=== PATIENT | female | born 1940 | race Hispanic/Latino ===

== ENCOUNTER → 2019-09-11 | Day surgery (SDC) | payer OTHER ==
[~2019-09-11] MED LIST: ATORVASTATIN CA20 MG PO; BUPIVACAINE HCL 0.5% INJ 30 ML VIAL INJ ONE; CEFAZOLIN SOD 1 GM/NS 50ML 100 ML IV ONE; FENTANYL CITRATE/PF 100MCG/2 ML INJ ONE; HUMALOG100 UNIT/1 SQ; HUMULIN-R100 UNITS/ SQ; LIDOCAINE HCL 2% LOCAL INJ 5 ML SDV VIAL INJ ONE; METFORMIN HCL500 MG PO; MYRBETRIQ25 MG PO; ONDANSETRON HCL INJ 2MG/ML 2ML 2 MG/ML VIAL ONE; PROPOFOL IV EMULSION 10 MG/ML 20 ML VIAL ONE; SERTRALINE HCL50 MG PO; SEVOFLURANE INHAL SOLN 250 ML PEN BTL ONE; VESICARE5 MG PO
--- OUTSIDE RECORDS SUMMARY | 2019-09-11 07:10 | XMS REPORT ---
[facility] Address Unknown Phone Unavailable Care Team Providers Care Protective Signal Operations Supervisor Name Role Phone Unavailable Unavailable Payers Payer Name Policy Type Policy Number Effective Date Expiration Date Problems This patient has no known problems. Allergies, Adverse Reactions, Alerts Allergy Name Allergy Type Status Severity Reaction(s) Onset Date Inactive Date Treating Clinician Comments No Known Allergies DA Active U 2019-01-22 00:00:00 No Known Allergies DA Active U 2018-10-28 00:00:00 No Known Allergies DA Active U 2018-05-02 00:00:00 No Known Allergies DA Active U 2018-03-06 00:00:00 No Known Allergies DA Active U 2016-06-24 00:00:00 tramadol DA Active U 2014-10-10 00:00:00 Medications This patient has no known medications. Encounters Start Date/Time End Date/Time Encounter Type Admission Type Attending Clinicians Care Facility Care Department Encounter ID 2019-06-24 00:00:00 2019-06-24 00:00:00 Outpatient [facility] [id number] 2019-05-13 07:30:59 2019-05-13 07:30:59 Outpatient [facility] [id number] 2019-05-13 00:00:00 2019-05-13 00:00:00 Outpatient [facility] [id number] 2019-05-07 07:35:18 2019-05-07 07:35:18 Outpatient [facility] [id number] 2019-04-30 07:19:50 2019-04-30 07:19:50 Outpatient [facility] [id number] 2019-04-30 00:00:00 2019-04-30 00:00:00 Outpatient [facility] [id number] 2019-03-27 08:55:00 2019-03-27 08:55:00 Outpatient [facility] [id number] 2019-03-27 08:01:46 2019-03-27 08:01:46 Outpatient [facility] [id number] 2019-03-11 09:19:01 2019-03-11 09:19:01 Outpatient [facility] [id number] 2019-03-11 08:50:44 2019-03-11 08:50:44 Outpatient [facility] [id number] 2019-03-11 00:00:00 2019-03-11 00:00:00 Outpatient [facility] [id number] 00:00:00 2019 00:00:00 Outpatient [facility] [id number] 2019-01-28 10:33:08 2019-01-28 10:33:08 Outpatient [facility] [id number] 2019-01-28 07:24:30 2019-01-28 07:24:30 Outpatient [facility] [id number] 2019-01-28 00:00:00 2019-01-28 00:00:00 Outpatient [facility] [id number] 2019-01-23 08:17:35 2019-01-23 08:17:35 Outpatient [facility] [id number] 2019-01-15 07:10:16 2019-01-15 07:10:16 Outpatient [facility] [id number] 2019-01-15 00:00:00 2019-01-15 00:00:00 Outpatient [facility] [id number] 2019-01-08 08:42:45 2019-01-08 08:42:45 Outpatient [facility] [id number] 2018-12-18 08:10:35 2018-12-18 08:10:35 Outpatient [facility] [id number] 2018-11-27 09:39:28 2018-11-27 09:39:28 Outpatient [facility] [id number] 2018-11-21 00:00:00 2018-11-21 00:00:00 Outpatient [facility] [id number] 2018-11-13 08:37:12 2018-11-13 08:37:12 Outpatient [facility] [id number] 2018-11-13 08:06:37 2018-11-13 08:06:37 Outpatient [facility] [id number] 2018-11-13 00:00:00 2018-11-13 00:00:00 Outpatient [facility] [id number] 2018-11-08 00:00:00 2018-11-08 00:00:00 Outpatient [facility] [id number] 2018-11-06 00:00:00 2018-11-06 00:00:00 Outpatient [facility] [id number] 2018-10-16 00:00:00 2018-10-16 00:00:00 Outpatient [facility] [id number] 2018-10-12 00:00:00 2018-10-12 00:00:00 Outpatient [facility] [id number] 2018-10-08 08:45:44 2018-10-08 08:45:44 Outpatient [facility] [id number] 2018-10-08 07:36:07 2018-10-08 07:36:07 Outpatient [facility] [id number] 2018-10-08 00:00:00 2018-10-08 00:00:00 Outpatient [facility] [id number] 2018-10-08 00:00:00 2018-10-08 00:00:00 Outpatient [facility] [id number] 2018-10-01 09:19:57 2018-10-01 09:19:57 Outpatient [facility] [id number] 2018-09-18 08:49:19 2018-09-18 08:49:19 Outpatient [facility] [id number] 2018-08-13 00:00:00 2018-08-13 00:00:00 Outpatient [facility] [id number] 2018-07-26 00:00:00 2018-07-26 00:00:00 Outpatient [facility] [id number] 2018-06-22 07:33:35 2018-06-22 07:33:35 Outpatient [facility] [id number] 2018-06-18 08:21:56 2018-06-18 08:21:56 Outpatient [facility] [id number] 2018-06-13 00:00:00 2018-06-13 00:00:00 Outpatient [facility] [id number] 2018-05-31 08:51:34 2018-05-31 08:51:34 Outpatient [facility] [id number] 2018-05-16 00:00:00 2018-05-16 00:00:00 Outpatient [facility] [id number] 2018-05-14 00:00:00 2018-05-14 00:00:00 Outpatient [facility] [id number] 2018-05-07 08:48:49 2018-05-07 08:48:49 Outpatient [facility] [id number] 2018-05-07 00:00:00 2018-05-07 00:00:00 Outpatient [facility] [id number] 2018-05-03 00:00:00 2018-05-03 00:00:00 Outpatient [facility] [id number] 2018-04-30 07:03:26 2018-04-30 07:03:26 Outpatient [facility] [id number] 2018-04-24 00:00:00 2018-04-24 00:00:00 Outpatient [facility] [id number] 2018-04-17 00:00:00 2018-04-17 00:00:00 Outpatient [facility] [id number] 2018-04-09 08:26:45 2018-04-09 08:26:45 Outpatient [facility] [id number] 2018-03-15 07:12:43 2018-03-15 07:12:43 Outpatient [facility] [id number] 2018-03-12 09:05:45 2018-03-12 09:05:45 Outpatient [facility] [id number] 2018-02-28 07:57:10 2018-02-28 07:57:10 Outpatient [facility] [id number] 2018-02-24 00:00:00 2018-02-24 00:00:00 Outpatient [facility] [id number] 2018-02-23 04:08:08 2018-02-23 04:08:[address] [facility] [id number] 2018-02-23 01:08:13 2018-02-23 01:08:13 Outpatient [facility] [id number] 2018-02-23 00:00:00 2018-02-23 00:00:00 Outpatient [facility] [id number] 2018-02-23 00:00:00 2018-02-23 00:00:00 Outpatient [facility] [id number] 2018-02-21 21:53:04 2018-02-21 21:53:[address] [facility] [id number] 2018-02-14 08:14:21 2018-02-14 08:14:21 Outpatient [facility] [id number] 2018-02-07 07:06:48 2018-02-07 07:06:48 Outpatient [facility] [id number] 2018-01-27 00:00:00 2018-01-27 00:00:00 Outpatient [facility] [id number] 2018-01-23 00:00:00 2018-01-23 00:00:00 Outpatient [facility] [id number] 2018-01-18 00:00:00 2018-01-18 00:00:00 Outpatient [facility] [id number] 2018-01-17 06:57:52 2018-01-17 06:57:52 Outpatient [facility] [id number] 2017-12-27 08:16:02 2017-12-27 08:16:02 Outpatient [facility] [id number] 2017-12-12 05:53:40 2017-12-12 05:53:40 Emergency [facility] [id number] 2017-12-12 05:31:05 2017-12-12 05:31:05 Emergency [facility] [id number] 2017-12-12 00:00:00 2017-12-12 00:00:00 Outpatient [facility] [id number] 2017-11-30 08:28:25 2017-11-30 08:28:25 Outpatient [facility] [id number] 2017-11-28 00:00:00 2017-11-28 00:00:00 Outpatient [facility] [id number] 2017-11-20 05:48:27 2017-11-20 05:48:27 Emergency [facility] [id number] 2017-11-17 06:57:46 2017-11-17 06:57:46 Outpatient [facility] [id number] 2017-11-02 08:34:39 2017-11-02 08:34:39 Outpatient [facility] [id number] 2017-10-16 00:00:00 2017-10-16 00:00:00 Outpatient [facility] [id number] 2017-10-10 09:32:57 2017-10-10 09:32:57 Outpatient [facility] [id number] 2017-09-22 07:48:30 2017-09-22 07:48:30 Outpatient [facility] [id number] 2017-09-17 01:00:30 2017-09-17 01:00:30 Outpatient [facility] [id number] 2017-09-16 22:45:40 2017-09-16 22:45:40 Emergency [facility] [id number] 2017-09-16 19:21:44 2017-09-16 19:21:44 Emergency [facility] [id number] 2017-09-16 18:38:16 2017-09-16 18:38:16 Outpatient [facility] [id number] 2017-07-25 09:23:55 2017-07-25 09:23:55 Outpatient [facility] [id number] 2017-07-25 08:40:18 2017-07-25 08:40:18 Outpatient [facility] [id number] 2017-07-25 08:24:31 2017-07-25 08:24:31 Outpatient [facility] [id number] 2017-07-17 07:38:39 2017-07-17 07:38:39 Outpatient [facility] [id number] 2017-07-16 14:39:17 2017-07-16 14:39:17 Emergency [facility] [id number] 2017-07-16 10:32:34 2017-07-16 10:32:34 Emergency [facility] [id number] 2017-07-16 10:15:20 2017-07-16 10:15:20 Emergency [facility] [id number] 2017-07-16 10:14:58 2017-07-16 10:14:58 Emergency [facility] [id number] 2017-07-16 09:48:51 2017-07-16 09:48:51 Emergency [facility] [id number] 2017-07-14 09:28:01 2017-07-14 09:28:01 Outpatient [facility] [id number] 2017-07-14 06:44:31 2017-07-14 06:44:31 Emergency [facility] [id number] 2017-07-14 00:15:16 2017-07-14 00:15:[address] [facility] [id number] 2016-12-28 00:00:00 2016-12-28 00:00:00 Outpatient [facility] [id number] 2016-12-12 00:00:00 2016-12-12 00:00:00 Outpatient [facility] [id number] 2016-11-11 00:00:00 2016-11-11 00:00:00 Outpatient [facility] [id number] 2016-11-03 10:50:09 2016-11-03 10:50:09 Outpatient [facility] [id number] 2016-11-03 00:00:00 2016-11-03 00:00:00 Outpatient [facility] [id number] 2016-11-03 00:00:00 2016-11-03 00:00:00 Outpatient [facility] [id number] Results Test Description Test Time Test Comments Text Results Atomic Results Result Comments - XR WRIST 3 + V LT 2019-08-23 15:35:00 FAX: Luis Manuel Macias MD [phone] [place]: [place] St: REG Name: EMERSONJASSI PEREZ [facility] : 1940 Age/S: 79/F [address] [facility] [address] Unit #: [id number] Loc: [facility] [address] Phys: Luis Manuel Macias MD [place], [place] [address] Acct: [id number] Dis Date: Status: REG ER PHONE #: Exam Date: 08/23/2019 1430 FAX #: Reason: injury r/o fx EXAMS: CPT CODE: [id number] XR WRIST 3 + V LT 10897 EXAM: Left wrist, 3 views; INFORMATION: Trauma, leg: Fracture impression FINDINGS: There is a slightly impacted fracture involving the metaphysis of the left radius. The lateral view shows mild dorsal displacement of small cortical fragments. The distal ulna as well as carpal and metacarpal bones are intact. There is periarticular soft tissue swelling; No radiopaque foreign bodies. IMPRESSION: Impacted fracture of the distal left radius. Location code: [facility] at 1538 Reported and signed by: Paul Rizvi M.D. CC: Luis Manuel Macias MD Technologist: José Manuel Sunshine Trnscrd Date/Time/By: 08/23/2019 (4889) : By: Gracia Orig Print D/T: S: 08/23/2019 (6395) PAGE 1 Signed Report - CT CHEST W/O CONTRAST 2019-04-10 14:27:00 Name: JASSI EMERSON [facility] : 1940 Age/S: 79 / F [address] Unit #: [id number] Loc: [place] [address] Phys: Amber Kay MD Acct: [id number] Dis Date: Status: DEP CLI PHONE #: [phone] Exam Date: 04/10/2019 1415 FAX #: [phone] Reason: DYSPNEA EXAMS: CPT CODE: [id number] CT CHEST W/O CONTRAST 13372 HISTORY: Dyspnea. COMPARISON: CT chest from July 05, 2016 CT chest without contrast: Automated exposure control. The lungs are clear of infiltrates, effusion or congestion. Scarring and dependent changes bilaterally. No parenchymal mass or nodules are noted. No bronchiectasis, honeycombing or fibrosis or endobronchial lesions. Normal caliber atherosclerotic unopacified aorta. Unremarkable unopacified pulmonary arteries. The thyroi d glands are unremarkable. Esophagus is mildly dilated. The wall is not thickened. No pathologic adenopathy. Cardiac silhouette is mildly enlarged without pericardial effusion. Visualized upper abdomen is limited by motion but unremarkable. The subcutaneous tissues and the musculature are normal in appearance. No lytic or blastic lesions are noted within the bony skeleton. IMPRESSION: The lungs are clear with scarring and dependent changes. No parenchymal mass or nodules. No bronchiectasis, honeycombing or fibrosis. No pathologic adenopathy. at 1427 Reported and signed by: Gregory Valdes M.D. CC: Amber Kay MD Technologist:Katie DavenportRT(R),CT CTDI: DLP: Trnscb Date/Time: 04/10/2019 (1426) [email or web address] Orig Print D/T: S: 04/10/2019 (4831) PAGE 1 Signed Report - CT CHEST W/O CONTRAST 2019-04-10 14:27:00 Name: JASSI EMERSON [facility] : 1940 Age/S: 79 / F [address] Unit #: [id number] Loc: [place] [address] Phys: Amber Kay MD Acct: [id number] Dis Date: Status: REG CLI PHONE #: [phone] Exam Date: 04/10/2019 1415 FAX #: [phone] Reason: DYSPNEA EXAMS: CPT CODE: [id number] CT CHEST W/O CONTRAST 48275 HISTORY: Dyspnea. COMPARISON: CT chest from July 05, 2016 CT chest without contrast: Automated exposure control. The lungs are clear of infiltrates, effusion or congestion. Scarring and dependent changes bilaterally. No parenchymal mass or nodules are noted. No bronchiectasis, honeycombing or fibrosis or endobronchial lesions. Normal caliber atherosclerotic unopacified aorta. Unremarkable unopacified pulmonary arteries. The thyroi d glands are unremarkable. Esophagus is mildly dilated. The wall is not thickened. No pathologic adenopathy. Cardiac silhouette is mildly enlarged without pericardial effusion. Visualized upper abdomen is limited by motion but unremarkable. The subcutaneous tissues and the musculature are normal in appearance. No lytic or blastic lesions are noted within the bony skeleton. IMPRESSION: The lungs are clear with scarring and dependent changes. No parenchymal mass or nodules. No bronchiectasis, honeycombing or fibrosis. No pathologic adenopathy. at 1427 Reported and signed by: Gregory Valdes M.D. CC: Amber Kay MD Technologist:Katie DavenportRT(R),CT CTDI: DLP: Trnscb Date/Time: 04/10/2019 (1427) [email or web address] Orig Print D/T: S: 04/10/2019 (0330) PAGE 1 Signed Report - CT ABD PELVIS W/O CONT 2019-01-22 13:34:00 Name: JASSI EMERSON [facility] : 1940 Age/S: 78 / F [address] [facility] Unit #: [id number] Loc: [place] [address] Phys: Mary Da Silva DO Acct: [id number] Dis Date: Status: DEP ER PHONE #: [phone] Exam Date: 01/22/2019 1305 FAX #: [phone] Reason: flank pain, r/o kidney stone EXAMS: CPT CODE: [id number] CT ABD PELVIS W/O CONT 06671 REASON FOR EXAM: flank pain, r/o kidney stone EXAM ORDER DATE: 01/22/2019 12:46 PM Ordering M.D.: Mary Da Silva DO PROCEDURE: - CT ABD PELVIS W/O CONT noncontrast axial CT images were acquired through the abdomen/pelvis at 5 mm intervals. Sagittal and coronal reformatted images were generated. Automated exposure control was utilized for this reduction. Phases of contrast: None COMPARISON: CT of the abdomen and pelvis May 03, 2018 is available for review FINDINGS: The absence of IV contrast limits sensitivity of this exam for the detection of soft tissue pathology Visualized thorax: Atherosclerotic disease is present in the coronary arteries. Lung bases are clear. Hepatobiliary system: Decreased attenuation of the hepatic parenchyma likely represents steatosis. Prior cholecystectomy. Pancreas: Atrophic with mild fatty replacement. Spleen: Grossly normal Adrenal glands: Grossly normal Genitourinary system: Grossly normal. Specifically no stones are seen in the kidneys or ureters or urinary bladder. No hydronephrosis or hydroureter. Gastrointestinal tract and appendix: There is a stool ball within the rectum that measures up to 7.7 x 6.2 cm cross-sectionally and over 10 cm in length. Otherwise normal. Abdominal vascular structures: Atherosclerotic disease is scattered throughout the abdominal aorta and extends into the iliac arteries. Peritoneum and retroperitoneum: No free fluid or free air. No omental PAGE 1 Signed Report (CONTINUED) Name: JASSI EMERSON [facility] : 1940 Age/S: 78 / F [address] [facility] Unit #: [id number] Loc: [place] [address] Phys: Mary Da Silva DO Acct: [id number] Dis Date: Status: [facility] ER PHONE #: [phone] Exam Date: 01/22/2019 1305 FAX #: [phone] Reason: flank pain, r/o kidney stone EXAMS: CPT CODE: [id number] CT ABD PELVIS W/O CONT 38287 <Continued> or mesenteric masses. No abnormal lymph nodes. Musculoskeletal structures and abdominal wall: Degenerative changes are present in the lower thoracic and lower lumbar spine. There is grade 1 L4-L5 anterolisthesis. IMPRESSION: No nephrolithiasis or ureterolithiasis. No perinephric or periureteral inflammatory changes. Rectal stool ball measuring more than 6 cm in diameter. This may represent fecal impaction. Hepatic steatosis. at 5166 Reported and signed by: Jagdish Sim MD CC: Mary Da Silva DO Technologist:Karen Gar RT(R),CT CTDI: DLP: Trnscb Date/Time: 01/22/2019 (8795) [email or web address] Orig Print D/T: S: 01/22/2019 (0708) PAGE 2 Signed Report - CT ABD PELVIS W/O CONT 2019-01-22 13:34:00 Name: JASSI EMERSON [facility] : 1940 Age/S: 78 / F [address] [facility] Unit #: [id number] Loc: [place] [address] Phys: Mary Da Silva DO Acct: [id number] Dis Date: Status: REG ER PHONE #: [phone] Exam Date: 01/22/2019 1305 FAX #: [phone] Reason: flank pain, r/o kidney stone EXAMS: CPT CODE: [id number] CT ABD PELVIS W/O CONT 07885 REASON FOR EXAM: flank pain, r/o kidney stone EXAM ORDER DATE: 01/22/2019 12:46 PM Ordering MJefferson: Mary Da Silva DO PROCEDURE: - CT ABD PELVIS W/O CONT noncontrast axial CT images were acquired through the abdomen/pelvis at 5 mm intervals. Sagittal and coronal reformatted images were generated. Automated exposure control was utilized for this reduction. Phases of contrast: None COMPARISON: CT of the abdomen and pelvis May 03, 2018 is available for review FINDINGS: The absence of IV contrast limits sensitivity of this exam for the detection of soft tissue pathology Visualized thorax: Atherosclerotic disease is present in the coronary arteries. Lung bases are clear. Hepatobiliary system: Decreased attenuation of the hepatic parenchyma likely represents steatosis. Prior cholecystectomy. Pancreas: Atrophic with mild fatty replacement. Spleen: Grossly normal Adrenal glands: Grossly normal Genitourinary system: Grossly normal. Specifically no stones are seen in the kidneys or ureters or urinary bladder. No hydronephrosis or hydroureter. Gastrointestinal tract and appendix: There is a stool ball within the rectum that measures up to 7.7 x 6.2 cm cross-sectionally and over 10 cm in length. Otherwise normal. Abdominal vascular structures: Atherosclerotic disease is scattered throughout the abdominal aorta and extends into the iliac arteries. Peritoneum and retroperitoneum: No free fluid or free air. No omental PAGE 1 Signed Report (CONTINUED) [facility] 1940 Age/S: 78 / F [address] [facility] Unit #: [id number] Loc: [place] [address] Phys: Mary Da Silva DO Acct: [id number] Dis Date: Status: REG ER PHONE #: [phone] Exam Date: 01/22/2019 1305 FAX #: [phone] Reason: flank pain, r/o kidney stone EXAMS: CPT CODE: [id number] CT ABD PELVIS W/O CONT 01633 <Continued> or mesenteric masses. No abnormal lymph nodes. Musculoskeletal structures and abdominal wall: Degenerative changes are present in the lower thoracic and lower lumbar spine. There is grade 1 L4-L5 anterolisthesis. IMPRESSION: No nephrolithiasis or ureterolithiasis. No perinephric or periureteral inflammatory changes. Rectal stool ball measuring more than 6 cm in diameter. This may represent fecal impaction. Hepatic steatosis. at 1334 Reported and signed by: Jagdish Sim MD CC: Mary Da Silva DO Technologist:Karen Gar RT(R),CT CTDI: DLP: Trnscb Date/Time: 01/22/2019 (2889) [email or web address] Orig Print D/T: S: 01/22/2019 (8033) PAGE 2 Signed Report - CT HEAD/BRAIN W/O CONT 2019-01-22 13:28:00 Name: JASSI EMERSON [facility] : 1940 Age/S: 78 / F [address] [facility] Unit #: [id number] Loc: [place] [address] Phys: Mary Da Silva DO Acct: [id number] Dis Date: Status: DEP ER PHONE #: [phone] Exam Date: 01/22/2019 1305 FAX #: [phone] Reason: headache EXAMS: CPT CODE: [id number] CT HEAD/BRAIN W/O CONT 22341 HISTORY: headache TECHNIQUE: Noncontrast 2.[address] of the head. Examination acquired within 24 hours of arrival. Automated exposure control for dose reduction. COMPARISON: Noncontrast CT brain October 28, 2018 FINDINGS: No acute hemorrhage. No intracranial mass, mass effect, or midline shift. No CT evidence of acute infarct. Park-white matter differentiation is preserved. No hydrocephalus. No extra-axial fluid collection. Age- appropriate cortical atrophy is present. There is slightly decreased attenuation of the periventricular white matter, similar to the prior exam, likely representing mild microvascular ischemic changes. Mucosal thickening in the left maxillary sinus is unchanged from the previous exam. Mastoid air cells and middle ear cavities are clear. . Orbital contents are unremarkable. Calvarium and skull base are intact. IMPRESSION: No acute intracranial process. Microvascular ischemic changes of the white matter and age-appropriate cortical atrophy. Mucosal thickening of the left maxillary sinus is unchanged from the previous study. at 1328 Reported and signed by: Jagdish Sim MD PAGE 1 Signed Report (CONTINUED) Name: JASSI EMRESON [facility] : 1940 Age/S: 78 / F [address] [facility] Unit #: [id number] Loc: [place] [address] Phys: Mary Da Silva DO Acct: [id number] Dis Date: Status: [facility] ER PHONE #: [phone] Exam Date: 01/22/2019 1305 FAX #: [phone] Reason: headache EXAMS: CPT CODE: [id number] CT HEAD/BRAIN W/O CONT 43668 <Continued> CC: Mary Da Silva DO Technologist:Karen Gar RT(R),CT CTDI: DLP: Trnscb Date/Time: 01/22/2019 (1328) [email or web address] Orig Print D/T: S: 01/22/2019 (8641) PAGE 2 Signed Report - CT HEAD/BRAIN W/O CONT 2019-01-22 13:28:00 Name: JASSI EMERSON [facility] : 1940 Age/S: 78 / F [address] Unit #: [id number] Loc: [place] [address] Phys: Mary Da Silva DO Acct: [id number] Dis Date: Status: REG ER PHONE #: [phone] Exam Date: 01/22/2019 1305 FAX #: [phone] Reason: headache EXAMS: CPT CODE: [id number] CT HEAD/BRAIN W/O CONT 10203 HISTORY: headache TECHNIQUE: Noncontrast 2.[address] of the head. Examination acquired within 24 hours of arrival. Automated exposure control for dose reduction. COMPARISON: Noncontrast CT brain October 28, 2018 FINDINGS: No acute hemorrhage. No intracranial mass, mass effect, or midline shift. No CT evidence of acute infarct. Park-white matter differentiation is preserved. No hydrocephalus. No extra-axial fluid collection. Age- appropriate cortical atrophy is present. There is slightly decreased attenuation of the periventricular white matter, similar to the prior exam, likely representing mild microvascular ischemic changes. Mucosal thickening in the left maxillary sinus is unchanged from the previous exam. Mastoid air cells and middle ear cavities are clear. . Orbital contents are unremarkable. Calvarium and skull base are intact. IMPRESSION: No acute intracranial process. Microvascular ischemic changes of the white matter and age-appropriate cortical atrophy. Mucosal thickening of the left maxillary sinus is unchanged from the previous study. at 1328 Reported and signed by: Jagdish Sim MD PAGE 1 Signed Report (CONTINUED) Name: JASSI EMERSON [facility] : 1940 Age/S: 78 / F [address] Unit #: [id number] Loc: [place] [address] Phys: Cody Da Silvaen Acct: [id number] Dis Date: Status: REG ER PHONE #: [phone] Exam Date: 01/22/2019 1305 FAX #: [phone] Reason: headache EXAMS: CPT CODE: [id number] CT HEAD/BRAIN W/O CONT 30757 <Continued> CC: Mary Da Silva DO Technologist:Karen Gar RT(R),CT CTDI: DLP: Trnscb Date/Time: 01/22/2019 (1279) [email or web address] Orig Print D/T: S: 01/22/2019 (4792) PAGE 2 Signed Report BASIC METABOLIC PANEL 2019-01-22 13:25:00 SODIUM (test code=NA) TEST NOT PERFORMED mmol/L 136-145 Previously reported result: 139 mmol/LEdited by: SIENA on 01/22/19:25137201/22/19 1319: NA previously reported as: 139 mmol/L BASIC METABOLIC [id number] 13:01:00* Test Item Value Reference Range Comments SODIUM (test code=NA) 139 mmol/L 136-145 POTASSIUM (test code=K) 4.5 mmol/L 3.5-5.1 CHLORIDE (test code=CL) 105.0 mmol/L 98-107 CARBON DIOXIDE (test code=CO2) mmol/L 21-32 ANION GAP (test code=GAP) 10-20 GLUCOSE (test code=GLU) mg/dL 74-106 BLOOD UREA NITROGEN (test code=BUN) mg/dL 7-18 GLOMERULAR FILTRATION RATE (test code=GFR) mL/min >=60 CREATININE (test code=CREAT) mg/dL 0.55-1.02 BUN/CREATININE RATIO (test code=BUN/CREA) 10-20 CALCIUM (test code=CA) mg/dL 8.5-10.1 HEPATIC FUNCTION [id number] 13:01:00* Test Item Value Reference Range Comments TOTAL PROTEIN (test code=PROT) gram/dL 6.4-8.2 ALBUMIN (test code=ALB) g/dL 3.4-5.0 GLOBULIN (test code=GLOB) gram/dL 2.7-4.2 ALBUMIN/GLOBULIN RATIO (test code=A/G) 0.75-1.50 BILIRUBIN TOTAL (test code=BILT) mg/dL 0.0-1.0 BILIRUBIN DIRECT (test code=BILD) mg/dL 0.0-0.20 SGOT/AST (test code=AST) IUnit/L 15-37 SGPT/ALT (test code=ALT) IUnit/L 12-78 ALKALINE PHOSPHATASE TOTAL (test code=ALKP) IUnit/L 45-117 [id number] 13:01:00* Test Item Value Reference Range Comments LIPASE (test code=LIP) U/L 73.0-393.0 [id number] 13:01:00* Test Item Value Reference Range Comments TROPONIN-I (test code=TROPI) ng/mL 0-0.045 CBC W/O [id number] 12:51:00* Test Item Value Reference Range Comments WHITE BLOOD CELL (test code=WBC) 7.6 K/mm3 4.5-12.5 RED BLOOD CELL (test code=RBC) 4.79 mill/mm3 3.7-5.2 HEMOGLOBIN (test code=HGB) 13.7 gram/dL 11.5-15.5 HEMATOCRIT (test code=HCT) 43.8 % 36.0-46.0 MEAN CELL VOLUME (test code=MCV) 91.4 fL 80-98 MEAN CELL HGB (test code=MCH) 28.6 picogram 27.0-33.0 MEAN CELL HGB CONCETRATION (test code=MCHC) 31.3 gram/dL 33.0-36.0 RED CELL DISTRIBUTION WIDTH (test code=RDW) 13.1 % 11.6-16.2 PLATELET COUNT (test code=PLT) 198 K/mm3 150-450 MEAN PLATELET VOLUME (test code=MPV) 11.6 fL 6.7-11.0 CBC W/O [id number] 12:47:00* Test Item Value Reference Range Comments WHITE BLOOD CELL (test code=WBC) K/mm3 4.5-12.5 RED BLOOD CELL (test code=RBC) mill/mm3 3.7-5.2 HEMOGLOBIN (test code=HGB) 13.7 gram/dL 11.5-15.5 HEMATOCRIT (test code=HCT) 43.8 % 36.0-46.0 MEAN CELL VOLUME (test code=MCV) fL 80-98 MEAN CELL HGB (test code=MCH) picogram 27.0-33.0 MEAN CELL HGB CONCETRATION (test code=MCHC) gram/dL 33.0-36.0 RED CELL DISTRIBUTION WIDTH (test code=RDW) % 11.6-16.2 PLATELET COUNT (test code=PLT) K/mm3 150-450 MEAN PLATELET VOLUME (test code=MPV) fL 6.7-11.0 - XR HUMERUS 2 + V [id number] 23:57:00 FAX: Jennifer Browning MD [phone] [place]: [place] St: DEP Name: JASSI JARAMILLO [facility] FSED : [birth year] Age/S: 78/F [address] [facility] [address] Unit #: [id number] Loc: [facility] [address] Phys: Jennifer Preston MD [place], [place] [address] Acct: [id number] Dis Date: Status: DEP ER PHONE #: Exam Date: 12/08/2018 2302 FAX #: Reason: fall EXAMS: CPT CODE: [id number] XR HUMERUS 2 + V [place] [address] EXAM: - XR HUMERUS 2 + V RT HISTORY: Fall. FINDINGS: There is no evidence of acute fracture or dislocation. The glenohumeral joint is aligned. Mild degen erative changes are present. No distinct osseous lesions are noted. Limited exam. IMPRESSION: No acute osseous abnormality. at 0655 Reported and signed by: Aly Ace MD CC: Jennifer Preston MD Technologist: Nilson Leiva RT(R),CT Trnnjrd Date/Time/By: 12/08/2018 (1127) : By: [email or web address] Orig Print D/T: S: 12/09/2018 (0000) PAGE 1 Signed Report - XR HUMERUS 2 + V [id number] 23:57:00 FAX: Jennifer Browning MD [phone] [place]: [place] St: REG Name: JASSI JARAMILLO [facility] FSED : [birth year] Age/S: 78/F [address] [facility] [address] Unit #: [id number] Loc: [facility] [address] Phys: Jennifer Preston MD [place], [place] [address] Acct: [id number] Dis Date: Status: REG ER PHONE #: Exam Date: 12/08/2018 2301 FAX #: Reason: fall EXAMS: CPT CODE: [id number] XR HUMERUS 2 + V RT [address]103 EXAM: - XR HUMERUS 2 + V RT HISTORY: Fall. FINDINGS: There is no evidence of acute fracture or dislocation. The glenohumeral joint is aligned. Mild degen erative changes are present. No distinct osseous lesions are noted. Limited exam. IMPRESSION: No acute osseous abnormality. at 8027 Reported and signed by: Aly Ace MD CC: Jennifer Preston MD Technologist: Nilson Leiva RT(R),CT [facility] Date/Time/By: 12/08/2018 (0711) : By: [email or web address] Orig Print D/T: S: 12/09/2018 (0000) PAGE 1 Signed Report - XR SHOULDER 2 + V [id number] 23:56:00 FAX: Jennifer Browning MD [phone] [place]: [place] St: DEP Name: JASSI JARAMILLO [facility] FSED : [birth year] Age/S: 78/F [address] [facility] [address] Unit #: [id number] Loc: [facility] [address] Phys: Jennifer Preston MD [place], [place] [address] Acct: [id number] Dis Date: Status: DEP ER PHONE #: Exam Date: 12/08/2018 230 FAX #: Reason: fall EXAMS: CPT CODE: [id number] XR SHOULDER 2 + V RT 14143 EXAM: - XR SHOULDER 2 + V RT HISTORY: Fall. COMPARISON: None available time of interp retation. FINDINGS: Internal and external rotated AP views o f the right shoulder with scapular Y view is provided. There is no acute f racture or malalignment. The osseous structures are intact. IMPRESSION: No acute osseous abnormality. at 0084 Repo rted and signed by: Aly Ace MD CC: Jennifer Preston MD Technologist: Nilson Leiva RT(R),CT Trnscrd Date/Time/By: 12/08/2018 (5431) : By: tasia [email or web address] Orig Print D/T: S: 12/08/2018 (0185) PAGE 1 Signed Report - XR SHOULDER 2 + V [id number] 23:56:00 FAX: Jennifer Browning MD [phone] [place]: [place] St: REG Name: JASSI JARAMILLO [facility] FSED : [birth year] Age/S: 78/F [address] [facility] [address] Unit #: [id number] Loc: [facility] [address] Phys: Jennifer Preston MD [place], [place] [address] Acct: [id number] Dis Date: Status: REG ER PHONE #: Exam Date: 12/08/2018 2303 FAX #: Reason: fall EXAMS: CPT CODE: [id number] XR SHOULDER 2 + V RT [address]26 EXAM: - XR SHOULDER 2 + V RT HISTORY: Fall. COMPARISON: None available time of interp retation. FINDINGS: Internal and external rotated AP views o f the right shoulder with scapular Y view is provided. There is no acute f racture or malalignment. The osseous structures are intact. IMPRESSION: No acute osseous abnormality. at 2356 Repo rted and signed by: Aly Ace MD CC: Jennifer Preston MD Technologist: Nilson Leiva RT(R),CT Trnscrd Date/Time/By: 12/08/2018 (4419) : By: tasia [email or web address] Orig Print D/T: S: 12/08/2018 (4731) PAGE 1 Signed Report GLUBED 2018-10-30 13:05:00* Test Item Value Reference Range Comments GLUBED (test code=GLUBED) 345 mg/dL 74-106 Performed by certified block breaker operator at [facility] BASIC METABOLIC [id number] 09:47:00* Test Item Value Reference Range Comments SODIUM (test code=NA) 133 mmol/L 136-145 POTASSIUM (test code=K) 4.6 mmol/L 3.5-5.1 CHLORIDE (test code=CL) 105.0 mmol/L 98-107 CARBON DIOXIDE (test code=CO2) 20.0 mmol/L 21-32 ANION GAP (test code=GAP) 12.6 10-20 GLUCOSE (test code=GLU) 253 mg/dL 74-106 BLOOD UREA NITROGEN (test code=BUN) 25 mg/dL 7-18 GLOMERULAR FILTRATION RATE (test code=GFR) 44 mL/min >=60 Estimated GFR by using Modified MDRD formula.Chronic kidney disease is defined as either kidney damageor GFR <60 mL/min/1.73 m2 for >3 months. CREATININE (test code=CREAT) 1.20 mg/dL 0.55-1.02 Note change in reference range due to change in reagent. BUN/CREATININE RATIO (test code=BUN/CREA) 20.8 10-20 CALCIUM (test code=CA) 9.3 mg/dL 8.5-10.1 BASIC METABOLIC [id number] 09:40:00* Test Item Value Reference Range Comments SODIUM (test code=NA) 133 mmol/L 136-145 POTASSIUM (test code=K) 4.6 mmol/L 3.5-5.1 CHLORIDE (test code=CL) 105.0 mmol/L 98-107 CARBON DIOXIDE (test code=CO2) mmol/L 21-32 ANION GAP (test code=GAP) 10-20 GLUCOSE (test code=GLU) mg/dL 74-106 BLOOD UREA NITROGEN (test code=BUN) mg/dL 7-18 GLOMERULAR FILTRATION RATE (test code=GFR) mL/min >=60 CREATININE (test code=CREAT) mg/dL 0.55-1.02 BUN/CREATININE RATIO (test code=BUN/CREA) 10-20 CALCIUM (test code=CA) mg/dL 8.5-10.1 [id number] 09:34:00* Test Item Value Reference Range Comments GLUBED (test code=GLUBED) 318 mg/dL 74-106 Performed by certified block breaker operator at [facility] [id number] 22:09:00* Test Item Value Reference Range Comments GLUBED (test code=GLUBED) 462 mg/dL 74-106 Performed by certified block breaker operator at [facility] [id number] 17:57:00* Test Item Value Reference Range Comments GLUBED (test code=GLUBED) 437 mg/dL 74-106 Performed by certified block breaker operator at [facility] [id number] 12:58:00* Test Item Value Reference Range Comments GLUBED (test code=GLUBED) 458 mg/dL 74-106 Performed by certified block breaker operator at [facility] [id number] 10:26:00* Test Item Value Reference Range Comments GLUBED (test code=GLUBED) > 500 mg/dL 74-106 Performed by certified block breaker operator [facility] Not[facility]~ BASIC METABOLIC [id number] 08:38:00* Test Item Value Reference Range Comments SODIUM (test code=NA) 134 mmol/L 136-145 POTASSIUM (test code=K) 4.5 mmol/L 3.5-5.1 CHLORIDE (test code=CL) 102.0 mmol/L 98-107 CARBON DIOXIDE (test code=CO2) 22.0 mmol/L 21-32 ANION GAP (test code=GAP) 14.5 10-20 GLUCOSE (test code=GLU) 359 mg/dL 74-106 BLOOD UREA NITROGEN (test code=BUN) 22 mg/dL 7-18 GLOMERULAR FILTRATION RATE (test code=GFR) 40 mL/min >=60 Estimated GFR by using Modified MDRD formula.Chronic kidney disease is defined as either kidney damageor GFR <60 mL/min/1.73 m2 for >3 months. CREATININE (test code=CREAT) 1.30 mg/dL 0.55-1.02 Note change in reference range due to change in reagent. BUN/CREATININE RATIO (test code=BUN/CREA) 16.9 10-20 CALCIUM (test code=CA) 9.3 mg/dL 8.5-10.1 [id number] 08:31:00* Test Item Value Reference Range Comments GLYCOSYLATED HEMOGLOBIN (HA1C) (test code=GLYHGB) 12.8 % HbA1 4.8-6.0 ESTIMATED AVERAGE GLUCOSE (test code=EAG) 321 MG/DL BASIC METABOLIC [id number] 08:31:00* Test Item Value Reference Range Comments SODIUM (test code=NA) 134 mmol/L 136-145 POTASSIUM (test code=K) 4.5 mmol/L 3.5-5.1 CHLORIDE (test code=CL) 102.0 mmol/L 98-107 CARBON DIOXIDE (test code=CO2) mmol/L 21-32 ANION GAP (test code=GAP) 10-20 GLUCOSE (test code=GLU) mg/dL 74-106 BLOOD UREA NITROGEN (test code=BUN) mg/dL 7-18 GLOMERULAR FILTRATION RATE (test code=GFR) mL/min >=60 CREATININE (test code=CREAT) mg/dL 0.55-1.02 BUN/CREATININE RATIO (test code=BUN/CREA) 10-20 CALCIUM (test code=CA) mg/dL 8.5-10.1 - CT HEAD/BRAIN W/O [id number] 00:04:00 Name: EMRESONJASSI CHRIS [facility] FSED : 1940 Age/S: 78 / F [address] [facility] [address] Unit #: [id number] Loc: [address] Phys: Blossom Bryan DO [place], [place] [address] Acct: [id number] Dis Date: Status: DIS IN PHONE #: Exam Date: 10/28/2018 2350 FAX #: Reason: LIMA EXAMS: CPT CODE: [id number] CT HEAD/BRAIN W/O CONT 32793 AFTER HOURS SERVICE ON: 10/29/2018 12:[address] Scan of the Brain Without Contrast Location Code M12 History: LIMA Technique: Scans were performed on a helical scanner pre IV contrast only. The study is limited secondary to lack of intravenous contrast, particularly for evaluation of masses. One or more of the following dose reduction techniques were used: Automated exposure control, adjustment of the mA and/or kV according to patient size, and/or utilization of iterative reconstruction technique. Findings: There is no hydrocephalus. Basal cisterns are patent. There is no intracranial hyperdense hemorrhage. There is no midline shift or mass effect. No effacement of the park-white matter junction to indicate acute infarction. There are chronic ischemic white matter changes. Chronic appearing mucosal thickening is noted in the left maxillary sinus. Small amount of fluid attenuation is noted in the left mastoid air cells. There is no skull fracture. Im pression: No acute intracranial CT findings. Chronic l eft maxillary sinusitis. Small amount of fluid in left mastoid air cells . at 0004 R eported and signed by: Kecia Robledo M.D. CC: Blossom Bryan DO Technologist:Hero ASH DI: DLP: Trnscb Date/Time: 10/29/2018 (0004) [email or web address] Orig Print D/T: S: 10/29/2018 (0007) PAGE 1 Signed Report - CT HEAD/BRAIN W/O [id number] 00:04:00 Name: JASSI EMERSON [facility] FSED : 1940 Age/S: 78 / F [address] [facility] [address] Unit #: [id number] Loc: [address] Phys: Blossom Bryan DO [place], [place] [address] Acct: [id number] Dis Date: Status: REG ER PHONE #: Exam Date: 10/28/2018 2350 FAX #: Reason: LIMA EXAMS: CPT CODE: [id number] CT HEAD/BRAIN W/O CONT 19082 AFTER HOURS SERVICE ON: 10/29/2018 12:[address] Scan of the Brain Without Contrast Location Code M12 History: LIMA Technique: Scans were performed on a helical scanner pre IV contrast only. The study is limited secondary to lack of intravenous contrast, particularly for evaluation of masses. One or more of the following dose reduction techniques were used: Automated exposure control, adjustment of the mA and/or kV according to patient size, and/or utilization of iterative reconstruction technique. Findings: There is no hydrocephalus. Basal cisterns are patent. There is no intracranial hyperdense hemorrhage. There is no midline shift or mass effect. No effacement of the park-white matter junction to indicate acute infarction. There are chronic ischemic white matter changes. Chronic appearing mucosal thickening is noted in the left maxillary sinus. Small amount of fluid attenuation is noted in the left mastoid air cells. There is no skull fracture. Impression: No acute intracranial CT findings. Chronic left maxillary sinusitis. Small amount of fluid in left mastoid air cells. at 0004 Reported and signed by: Kecia Robledo M.D. CC: Blossom Bryan DO Technologist:Hero Reyes CTDI: DLP: Trnscb Date/Time: 10/29/2018 (0004) [email or web address] Orig Print D/T: S: 10/29/2018 (0007) PAGE 1 Signed Report - XR CHEST 1 [id number] 23:48:00 FAX: Blossom Bryan DO [place]: [place] St: DIS Name: Victoria JASSI HALL CHRIS [facility] FSED : [birth year] Age/S: 78/F [address] [facility] [address] Unit #: [id number] Loc: [facility] [address] Phys: Blossom Bryan DO [place], [place] [address] Acct: [id number] Dis Date: Status: DIS IN PHONE #: Exam Date: 10/28/2018 233 FAX #: Reason: CHEST PAIN EXAMS: CPT CODE: [id number] XR CHEST 1 V 44660 EXAM: - XR CHEST 1 V HISTORY: Chest pain. COMPARISON: 05/17/2018. FINDI NGS: Single AP view of the chest is provided. Heart size and vascularity are within normal limits. Calcific plaques in aorta. The lungs are clear of focal consolidation. No effusion, pneumothorax, or a cute osseous abnormality. There is no significant change compared to prior exam allowing for the difference in position. IMPRESSION: No radiographic evidence of acute cardiopulmonary process. No i nterval change. Electronically Signed by Aly Ace MD on 2018 at 7013 Reported and signed by: Aly Ace MD CC: NanomonicaBlossom LIPSCOMB echnologist: Hero Reyes Trnscrd Date /Time/By: 10/28/2018 (8010) : By: [email or web address] Orig Print D/T: S: 019 (7914) PAGE 1 Signed Report - XR CHEST 1 [id number] 23:48:00 FAX: Blossom Bryan [place]: [place] St: REG Name: JASSI JARAMILLO [facility] FSED : [birth year] Age/S: 78/F [address] [facility] [address] Unit #: [id number] Loc: [facility] [address] Phys: Blossom Bryan DO [place], [place] [address] Acct: [id number] Dis Date: Status: REG ER PHONE #: Exam Date: 10/28/2018 2336 FAX #: Reason: CHEST PAIN EXAMS: CPT CODE: [id number] XR CHEST 1 V 73412 EXAM: - XR CHEST 1 V HISTORY: Chest pain. COMPARISON: 05/17/2018. FINDI NGS: Single AP view of the chest is provided. Heart size and vascularity are within normal limits. Calcific plaques in aorta. The lungs are clear of focal consolidation. No effusion, pneumothorax, or a cute osseous abnormality. There is no significant change compared to prior exam allowing for the difference in position. IMPRESSION: No radiographic evidence of acute cardiopulmonary process. No i nterval change. Electronically Signed by Aly Ace MD on 2018 at 0173 Reported and signed by: Aly Ace MD CC: Blossom Bryan echnologist: Hero Reyes Trnscrd Date /Time/By: 10/28/2018 (8258) : By: [email or web address] Orig Print D/T: S: 019 (9113) PAGE 1 Signed Report B-TYPE NATRIURETIC [id number] 23:44:00* Test Item Value Reference Range Comments B-TYPE NATRIURETIC PEPTIDE (test code=BNP) 16.6 pg/mL 0-100 BASIC METABOLIC [id number] 23:40:00* Test Item Value Reference Range Comments SODIUM (test code=NA) 129 mmol/L 128-145 POTASSIUM (test code=K) 5.8 mmol/L 3.5-5.1 1+ HEMOLYSIS V.LAB.PG 10/28/18 2325 CHLORIDE (test code=CL) 96.0 mmol/L 98-107 CARBON DIOXIDE (test code=CO2) 23.0 mmol/L 22-29 ANION GAP (test code=GAP) 16 mmol/L 10-20 GLUCOSE (test code=GLU) 363 mg/dL 70-110 BLOOD UREA NITROGEN (test code=BUN) 21 mg/dL 7-22 GLOMERULAR FILTRATION RATE (test code=GFR) 38 mL/min >=60 Estimated GFR by using Modified MDRD formula.Chronic kidney disease is defined as either kidney damageor GFR <60 mL/min/1.73 m2 for >3 months. CREATININE (test code=CREAT) 1.36 mg/dL 0.55-1.3 BUN/CREATININE RATIO (test code=BUN/CREA) 15.4 10-20 CALCIUM (test code=CA) 8.9 mg/dL 8.0-10.5 CPK-MB [id number] 23:40:00* Test Item Value Reference Range Comments CREATINE KINASE (CK) (test code=CK) 165 U/L 26-192 CKMB (test code=CKMBT) 0.9 ng/mL 0.0-5.0 RELATIVE % INDEX (test code=REL%) 0.55 % 0.00-2.50 "If the total CK is elevated, the CKMB Fraction must beinterpreted as a Relative % Index, Normal is less than 2.5%"NOTE: Relative % Index is not valid with a normal total CK. [id number] 23:40:00* Test Item Value Reference Range Comments TROPONIN-I (test code=TROPI) <0.015 ng/mL 0.00-0.056 BASIC METABOLIC [id number] 23:25:00* Test Item Value Reference Range Comments SODIUM (test code=NA) 129 mmol/L 128-145 POTASSIUM (test code=K) 5.8 mmol/L 3.5-5.1 1+ HEMOLYSIS V.LAB.PG 10/28/18 2325 CHLORIDE (test code=CL) 96.0 mmol/L 98-107 CARBON DIOXIDE (test code=CO2) 23.0 mmol/L 22-29 ANION GAP (test code=GAP) 16 mmol/L 10-20 GLUCOSE (test code=GLU) 363 mg/dL 70-110 BLOOD UREA NITROGEN (test code=BUN) 21 mg/dL 7-22 GLOMERULAR FILTRATION RATE (test code=GFR) 38 mL/min >=60 Estimated GFR by using Modified MDRD formula.Chronic kidney disease is defined as either kidney damageor GFR <60 mL/min/1.73 m2 for >3 months. CREATININE (test code=CREAT) 1.36 mg/dL 0.55-1.3 BUN/CREATININE RATIO (test code=BUN/CREA) 15.4 10-20 CALCIUM (test code=CA) 8.9 mg/dL 8.0-10.5 CPK-MB [id number] 23:25:00* Test Item Value Reference Range Comments CREATINE KINASE (CK) (test code=CK) U/L 26-192 CKMB (test code=CKMBT) ng/mL 0.0-5.0 RELATIVE % INDEX (test code=REL%) % 0.00-2.50 [id number] 23:25:00* Test Item Value Reference Range Comments TROPONIN-I (test code=TROPI) ng/mL 0-0.045 CBC W/O [id number] 23:20:00* Test Item Value Reference Range Comments WHITE BLOOD CELL (test code=WBC) 6.9 K/mm3 4.5-12.5 RED BLOOD CELL (test code=RBC) 4.55 mill/mm3 3.7-5.2 HEMOGLOBIN (test code=HGB) 13.0 gram/dL 11.5-15.5 HEMATOCRIT (test code=HCT) 38.9 % 36.0-46.0 MEAN CELL VOLUME (test code=MCV) 85.5 fL 80-98 MEAN CELL HGB (test code=MCH) 28.6 picogram 27.0-33.0 MEAN CELL HGB CONCETRATION (test code=MCHC) 33.4 gram/dL 33.0-36.0 RED CELL DISTRIBUTION WIDTH (test code=RDW) 13.3 % 11.6-16.2 RED CELL DISTRIBUTION WIDTH SD (test code=RDW-SD) 41.4 fL 37.0-51.0 PLATELET COUNT (test code=PLT) 196 K/mm3 150-450 MEAN PLATELET VOLUME (test code=MPV) 12.0 fL 6.7-11.0 - XR CHEST 1 [id number] 08:55:00 FAX: Yaz Collins [phone] [place]: [address] St: DEP Name: Victoria CAVAZOSJASSI CHRIS [facility] : [birth year] Age/S: 78/F [address] [facility] Unit #: [id number] Loc: [place] [address] Phys: Yaz Terrell MD Acct: [id number] Dis Date: Status: [facility] ER PHONE #: [phone] Exam Date: 05/17/2018 0849 FAX #: [phone] Reason: Shortness of Breath EXAMS: CPT CODE: [id number] XR CHEST 1 V 23079 HISTORY: Shortness of Breath TECHNIQUE: AP chest x-ray COMPARISON: 05/03/18 FINDINGS: No airspace consolidation or pleural effusion. Normal heart size. Atherosclerotic vascular calcification of the thoracic aorta. Degenerative changes of the spine. IMPRESSION: No radiographic evidence of acute cardiopulmonary process. at 0855 Reported and signed by: Catalina Norman D.O. CC: Yaz Caicedo MD Technologist: RT TAMMY(José Miguel) Trnscrd Date/Time/By: 05/17/2018 (0855) : By: [email or web address] Orig Print D/T: S: 05/17/2018 (0891) PAGE 1 Signed Report - CT ABD PELVIS W/O [id number] 01:52:00 Name: JASSI EMERSON [facility] FSED : 1940 Age/S: 78 / F [address] [facility] Unit #: [id number] Loc: [address] Phys: Katarina Swann MD [place], [place] [address] Acct: [id number] Dis Date: Status: [facility] ER PHONE #: Exam Date: 05/03/2018 0120 FAX #: Reason: ABD PAIN EXAMS: CPT CODE: [id number] CT ABD PELVIS W/O CONT 97225 EXAM: - CT ABD PELVIS W/O CONT HISTORY: Abdominal pain. TECHNIQUE: Axial tomograms through the abdomen and pelvis were obtained without contrast. Coronal and sagittal reformatted images are provided. This exam was performed according to our departmental dose-optimization program, which includes automated exposure control, adjustment of the mA and/or kV according to patient size and/or use of iterative reconstruction technique. COMPARISON: None available time of interpretation. FINDINGS: The visualized lung bases are clear. Status post cholecystectomy. The liver, spleen, pancreas, adrenal glands and kidneys demonstrate no significant abnormalities. The appendix has a normal appearance. The bowel is unremarkable. There is no adenopathy or free fluid. There is a small to medium sized umbilical hernia containing fat. 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 There is calcified plaque involving the abdominal aorta and it's major branching vessels. IMPRESSION: No significant abnormalities demonstrated. Umbilical hernia containing fat. Degenerative changes in lower lumbar spine. at 0152 Reported and signed by: Aly Barraza MD PAGE 1 Signed Report (CONTINUED) Name: JASSI EMERSON [facility] FSED : 1940 Age/S: 78 / F [address] [facility] [address] Unit #: [id number] Loc: [address] Ph ys: Katarina Swann MD [place] [address] Acct: [id number] Dis Date: Status: DEP ER PHONE #: Exam Date: 05/03/2018 0120 FAX #: Reason: ABD PAIN EXAMS: CPT CODE: [id number] CT ABD PELVIS W/O CONT [id number] <Continued> CC: Technologist:Hero Reyes CTDI: DLP: Trnscb Date/Time: 05/03/2018 (015) [email or web address] Orig Print D/T: S: 05/03/2018 (0150) PAGE 2 Signed Report - XR CHEST 1 [id number] 01:04:00 [place]: [place] St: DEP Name: JASSI JARAMILLO [facility] FSED : [birth year] Age/S: 78/F [address] [facility] [address] Unit #: [id number] Loc: UNK [address] Phys: Katarina Swann MD [place], [place] [address] Acct: [id number] Dis Date: Status: DEP ER PHONE #: Exam Date: 05/03/2018 0040 FAX #: Reason: CHEST PAIN EXAMS: CPT CODE: [id number] XR CHEST 1 V 40587 EXAM: - XR CHEST 1 V HISTORY: Chest pain. COMPARISON: March 26, 2018. FINDINGS: Single AP view of the chest is provided. Heart siz e and vascularity are within normal limits. Atherosclerosis. The l ungs are clear of focal consolidation. No effusion, pneumothorax, or acut e osseous abnormality. There is no significant interval change. IMPRESSION: No radiographic evidence of acute cardiopulmonary proc ess. at 010 4 Reported and signed by: Aly Ace MD CC: Technologi st: Hero eRyes Trnscrd Date/Time/By: 05/03/2018 (010) : By: [email or web address] Orig Print D/T: S: 05/03/2018 (0107) PAGE 1 Signed Report - XR CHEST 1 [id number] 04:49:00 FAX: Aly Brown [place]: [place] St: DEP Name: JASSI JARAMILLO [facility] : [birth year] Age/S: 78/F [address] [facility] [address] Unit #: [id number] Loc: [facility] [address] Phys: Aly Brown MD [place], [place] [address] Acct: [id number] Dis Date: Status: DEP ER PHONE #: Exam Date: 03/26/2018 0440 FAX #: Reason: shob EXAMS: CPT CODE: [id number] XR CHEST 1 V 85046 EXAM: - XR CHEST 1 V HISTORY: Shortness of breath. COMPARISON: March 06, 2018. FINDINGS: Single AP view of the chest is provided. Heart size and vascularity are within normal limits. The lungs are clear of focal consolidation. No effusion, pneumothorax, or acute osseous ab normality. There is no interval change. IMPRESSION: No radiographic evidence of acute cardiopulmonary process. Electro nically Signed by Aly Ace MD on 03/26/2018 at 4152 Reported and signed by: Aly Ace MD CC: Rigoberto Brown MD Technologist: Gómez Gallego Trnscrd Date/Time/By: 03/26/2018 (0449) : By: [email or web address] Orig Print D/T: S: 03/26/2018 (0457) PAGE 1 Signed Report - PULM VENT PERF [id number] 13:13:00 [place]: St: DIS Name: Victoria HALLJASSI CHRIS [facility] : [birth year] Age/S: 77/F [address] [facility] Unit #: [id number] Loc: [place] [address] Phys: Katarina Swann MD Acct: [id number] Dis Date: Status: DIS IN PHONE #: [phone] Exam Date: 03/06/2018 1300 FAX #: [phone] Reason: CP,SOB,ELEVATED DDIMER EXAMS: CPT CODE: [id number] PULM VENT PERF IMAG 33881 HISTORY: Shortness of breath and d- dimer elevation. COMPARISON: Chest x-ray from same day. VQ scan: 10 mCi of xenon-133 gas and 5.8 mCi of technetium 99m MAA ad ministered. Ventilation examination: May limited for uptake in eit her lung Perfusion exam: No segmental or subsegmental defects. Th aparna findings suggest low probability for pulmonary embolism. IMPRESSION: FINDINGS suggest low probability for pulmonary embolus. at 1313 Reported and signed by: Gregory Valdes M.D. CC: John hnologist: Adolfo Pinto Trnscrd Date/T malina/By: 03/06/2018 (1313) : By: [email or web address] Orig Print D/T: S: 8 (5443) PAGE 1 Signed Report - XR CHEST 1 [id number] 07:48:00 [place]: [place] St: DIS Name: JASSI JARAMILLO [facility] : [birth year] Age/S: 77/F [address] [facility] [address] Unit #: [id number] Loc: [address] Phys: Katarina Swann MD [place], [place] [address] Acct: [id number] Dis Date: Status: DIS IN PHONE #: Exam Date: 03/06/2018 0537 FAX #: Reason: CHEST PAIN EXAMS: CPT CODE: [id number] XR CHEST 1 V 79778 HISTORY: Chest pain. COMPARISON: June 29, 2016. No acute infiltrates, effusion or c ongestion is noted. Suboptimal inspiration with dependent changes. Cardiomegaly. IMPRESSION: No acute i nfiltrates, effusion or congestion. at 0748 Reported and signed by: Gregory Valdes M.D. CC: Technologist: Hero Reyes [facility] Date/Time/By: 03/06/2018 (0748) : By: [email or web address] Orig Print D/T: S: 03/06/2018 (6295) PAGE 1 Signed Report - XR CHEST 1 [id number] 13:32:00 FAX: Emre Marroquin [phone] [place]: St: UNK Name: JASSI JARAMILLO [facility] : [birth year] Age/S: 76/F [address] [facility] Unit #: [id number] Loc: [place] [address] Phys: Emre Alvarado MD Acct: [id number] Dis Date: Status: UNK PHONE #: [phone] Exam Date: 06/29/2016 1325 FAX #: [phone] Reason: CP EXAMS: CPT CODE: [id number] XR CHEST 1 V 96457 HISTORY: Chest pain EXAM: CHEST X-RAY, ONE VIEW. COMPARISON: 06/24/2016 COMMENT: Frontal view of the chest is provided. Calcified plaque seen in the aorta. No focal infiltrate, consolidation, mass lesion, or effusion is seen. Cardiac silhouette is within normal limits. No acute bony abnorm alities. IMPRESSION: No acute disease. Electronica lly Signed by Ivory Brownlee MD on 06/29/2016 at 1332 Rep orted and signed by: Ivory Brownlee MD CC: Lisa Alvarado MD Technologist: RT Ayla( José Miguel) Trnnjryley Date/Time/By: 06/29/2016 (0483) : By: [email or web address] Orig Print D/T: S: 06/29/2016 (8406) PAGE 1 Signed Report - CTA [id number] 08:52:00 Name: JASSI EMERSON [facility] : 1940 Age/S: 76 / F [address] [facility] Unit #: [id number] Loc: [place] [address] Phys: Kip Storey MD Acct: [id number] Dis Date: Status: UNK PHONE #: [phone] Exam Date: 06/25/2016 0830 FAX #: [phone] Reason: sob elevated d dimer EXAMS: CPT CODE: [id number] CTA CHEST 99937 CTA CHEST WITH CONTRAST HISTORY: sob elevated d dimer TECHNIQUE: Axial CT images were obtained through the chest after intravenous contrast utilizing pulmonary embolus protocol. Coronal and sagittal reformatted images were also created from the data set. COMPARISON: None FINDINGS: The pulmonary arteries are well opacified with no evidence of pulmonary embolus. There is no evidence of thoracic aortic aneurysm or dissection. The lungs are clear. No pleural effusion or pneumothorax. There is no significant mediastinal or hilar adenopathy. No acute osseous abnormalities. Coronal and sagittal reformatted images confirm these findings. IMPRESSION: No evidence of pulmonary embolus. at 0852 Reported and signed by: Wayne Vaughn MD CC: Kip Storey MD Technologist:JENNIFER DUKE, RT CTDI: DLP: Trnscb Date/Time: 06/25/2016 (851) [email or web address] Orig Print D/T: S: 06/25/2016 (0884) PAGE 1 Signed Report - XR CHEST 1 [id number] 23:25:00 FAX: Lorrie Mcleod [place]: AM St: UNK Name: JASSI JARAMILLO [facility] : [birth year] Age/S: 76/F [address] [facility] Unit #: [id number] Loc: [place], [place] [address] Phys: Lorrie Mcleod [facility] Acct: [id number] Dis Date: Status: UNK PHONE #: [phone] Exam Date: 06/24/2016 2321 FAX #: [phone] Reason: CHEST PAIN EXAMS: CPT CODE: [id number] XR CHEST 1 V 67525 EXAM: - XR CHEST 1 V HISTORY: Chest pain. COMPARISON: 06/15/2016 FINDIN GS: Single AP view of the chest is provided. Heart size and vascularity are within normal limits. The lungs are clear of focal c onsolidation. No effusion, pneumothorax, or acute osseous abnormality. IMPRESSION: 1. No radiographic evidence of acute cardiopulmonary process. at 2325 Reported and signed by: Alistair Cross M.D. CC: Lorrie Mcleod T echnologist: Alicia Souza Date /Time/By: 06/24/2016 (2833) : By: [email or web address] Orig Print D/T: S: 017 (8461) PAGE 1 Signed Report - XR CHEST 2 [id number] 00:00:00 FAX: Collin Dickens NP [phone] [place]: AM St: [facility] Name: JASSI JARAMILLO [facility] : [birth year] Age/S: 76/F [address] [facility] Unit #: [id number] Loc: [place], [place] [address] Phys: Collin Dickens NP Acct: [id number] Dis Date: Status: K PHONE #: [phone] Exam Date: 06/15/2016 2356 FAX #: [phone] Reason: CHEST PAIN EXAMS: CPT CODE: [id number] XR CHEST 2 V 29963 HISTORY: Chest pain. COMPARISON:01/11/2015 FINDINGS: 2 views of the chest are pro vided. Aortic calcifications are present. Heart size and vascularity are within normal limits. The lungs are clear of focal consolidation. No effusion, pneumothorax, or acute osseous abnormality. IMPRESSION: 1. No focal consolidation. No other acute abnormalities. Electronically Signed by Javi Monteiro MD on 016 at 0000 Reported and signed by: Javi Monteiro MD CC: Collin Dickens NP Technologist: RT Reyes GAMA Da te/Time/By: 06/16/2016 (0000) : By: [email or web address] Orig Print D/T: S: 06/16 (0003) PAGE 1 Signed Report - CT ABD PELVIS [id number] 21:03:00 Name: JASSI EMERSON [facility] : 1940 Age/S: 75 / F [address] [facility] Unit #: [id number] Loc: [place] [address] Phys: Amrit Arnold MD Acct: [id number] Di s Date: Status: UNK PHONE #: Exam Date: 02/18/20162055 FAX #: Reason: LEFT FLANK PAIN EXAMS: CPT CODE: [id number] CT ABD PELVIS W/CONT 61275 EXAM: - CT ABD PELVIS W/ CONT HISTORY: Left flank pain TECHNIQUE: Axial tomog maria e through the abdomen and pelvis were obtained after intravenous contra st. Coronal and sagittal reformatted images are provided. CO MPARISON: 11/08/2014 FINDINGS: The visualized lung ba ses are clear. Cholecystectomy clips are present. Simple left renal cyst is unchanged. The liver, spleen, pancreas, adrenal glands and right kidney demonstrate no significant abnormalities. The appendi x has a normal appearance. The bowel is unremarkable. There is no adenopathy or free fluid. The osseous structures demonstrate dege nerative change without focal lesion. There is calcified plaque involving the abdominal aorta and it's major branching vessels. IMPRESSION: 1. No significant abnormalities dem onstrated. at 2102 Reported and signed by: Alistair Cross M.D. CC: Rosemary Aguila MD; Lee Arnold MD Technologist:ELSY SEPULVEDA CTDI: DLP: Trnscb Date/Time: 02/18/2016 (2102) [email or web address] [email or web address] Orig Print D/T: S: 02/18/2016 (2105) PAGE 1 Signed Report - XR CHEST 1 V 2015-01-11 10:04:00 FAX: Jennifer Browning MD [phone] [place]: AM St: [facility] Name: JASSI JARAMILLO [facility] : [birth year] Age/S: 74/F [address] [facility] Unit #: [id number] Loc: [place] [address] Phys: Jennifer Preston MD Acct: [id number] Dis Date: Status: [facility] PHONE #: [phone] Exam Date: 01/11/2015956 FAX #: [phone] Reason: atypical chest pain EXAMS: CPT CODE: [id number] XR CHEST 1 V 93322 INDICATION: atypical chest pain COMPARISON: 11/08/2014 TECHNIQUE: Single Portable AP upright view of the chest DISCUSSION: Better ventilation is noted on today's chest x-ray. The martha ngs are clear. Heart is within normal limits. No pne umothorax or pleural effusion. Osseous structures are within mckenna l limits. IMPRESSION: 1. Unr emarkable chest x-ray. Electronically Signed by Martínez Downs MD on 12/18 at 1004 Reported and signed by: Martínez Downs MD CC: Jennifer Preston MD Technolog ist: RT TERESA Trnscrd Date/Time/By : 01/11/2015 (1004) : By: Leisa Orig Print D/T: S: 01/11/2015 (100 7) PAGE 1 Signed Report - CT ABD PELVIS W/O [id number] 01:48:00 Name: JASSI EMERSON [facility] : 1940 Age/S: 74 / F [address] [facility] Unit #: [id number] Loc: [place] [address] Phys: Micah Dallas MD Acct: [id number] Di s Date: Status: [facility] PHONE #: Exam Date: 11/08/2014 0132 FAX #: Reason: periumbilical abdominal ttp EXAMS: CPT CODE: [id number] CT ABD PELVIS W/O CONT 53604 HISTORY: periumbilical ab dominal ttp TECHNIQUE: Axial CT images through the abdomen and pel vis were obtained after intravenous contrast. Coronal and sagittal reform atted images were created from the data set. COMPARISON : None FINDINGS: The visualized lung bases are clear . Cholecystectomy clips are present. Mild right hydr onephrosis and perinephric fat stranding without evidence of obstructing s tones. The liver, spleen, pancreas, and adrenal glands have no sig nificant abnormalities. The appendix has a normal appearance . No bowel distention or wall thickening. There is no adeno shayne or free fluid. No acute osseous abnormalities. IMPRESSION: Mild right hydronephrosis without obstructing lesion could be secondary to recently passed stone. Otherwise, no signi ficant abdomen/pelvis abnormalities. at 0148 Reported and sig jeff by: Wayne Vaughn MD CC: Lauren Dallas MD Technologist:Karen Rueda RT(R),CT CTDI: 20.90 DLP: 1018.62 Trnscb Date/Time: 11/08/2014 (014) [email or web address] Orig Print D/T: S: 11/08/2014 (0151) PAGE 1 Signed Report - XR CHEST 1 [id number] 01:03:00 FAX: Lauren Mane [phone] [place]: AM St: [facility] Name: JASSI JARAMILLO [facility] : [birth year] Age/S: 74/F [address] [facility] Unit #: [id number] Loc: [place], [place] [address] Phys: Lauren Dallas MD Acct: [id number] Dis Date: Status: UNK PHONE #: [phone] Exam Date: 11/08/2014 0054 FAX #: [phone] Reason: fever EXAMS: CPT CODE: [id number] XR CHEST 1 V 06396 EXAM: - XR CHEST 1 V HISTORY: fever COMPARISON: None FINDINGS: The lungs are clear. No pleural effusion or pneumothorax. The cardiac silhouette is within normal limits. No acute osseous abnormalities. IMPRESSION: No acute cardiopulmonary disease. Electr onically Signed by Wayne Vaughn MD on 11/08/2014 at 0103 Reported and signed by: Wayne Vaughn MD CC: Kenisha Dallas MD Technologist: Rich WILLARD(R) Trnscrd Date/Time/By: 11/08/2014 (0103) : By: [email or web address] Orig Print D/T: S: 11/08/2014 (0107) PAGE 1 Signed Report
[2019-09-11 08:29] LABS: BASOPHILS % 0.2 % (0.0-1.0); EOSINOPHILS # (AUTO) 0.2 (0.0-0.4); EOSINOPHILS % 2.7 % (0.0-6.0); HEMATOCRIT 37.6 % (34.2-44.1); HEMOGLOBIN 12.3 g/dL (12.0-16.0); LYMPHOCYTES # (AUTO) 2.4 (1.0-3.2); LYMPHOCYTES % 29.8 % (18.0-39.1); MEAN CORPUSCULAR HEMOGLOBIN 28.7 pg (28-32); MEAN CORPUSCULAR HGB CONC 32.7 g/dL (31-35); MEAN CORPUSCULAR VOLUME 87.9 fL (81-99); MONOCYTES # (AUTO) 0.6 (0.2-0.8); MONOCYTES % 7.5 % (4.4-11.3); NEUTROPHILS # (AUTO) 4.8 (2.1-6.9); NEUTROPHILS % 59.6 % (38.7-80.0); PLATELET COUNT 240 x10e3/uL (140-360); RED BLOOD COUNT 4.28 x10e6/uL (3.6-5.1); RED CELL DISTRIBUTION WIDTH 13.2 % (11.7-14.4)
[2019-09-11 08:43] LABS: ANION GAP 14.2 mmol/L (8-16); CALCIUM 9.7 mg/dL (8.4-10.2); CREATININE, SERUM 1.09 mg/dL (0.57-1.11); POTASSIUM 4.2 mmol/L (3.5-5.1)
--- NOTE | 2019-09-11 09:03 | Diagnostic Imaging Report ---
Chest, 2 views, 09/11/2019. History: Preop, left radius surgery. Comparison: None available. Findings: The cardiomediastinal silhouette and pulmonary vasculature are within normal limits. Calcification of the aortic knob is noted. The lungs are clear without evidence of consolidation or pleural effusion. Degenerative changes are noted in the thoracic spine. There are no acute osseous or soft tissue abnormalities. Impression: No acute cardiopulmonary abnormality. Signed by: Mushtaq Mondragon on 09/11/2019 9:00 AM
[2019-09-11 09:57] LABS: CLARITY,URINE SL CLOUDY (CLEAR); COLOR,URINE YELLOW (YELLOW); LEUKOCYTE ESTERASE ,URINE SMALL (NEGATIVE)
[2019-09-11 09:58] LABS: BILIRUBIN,URINE NEGATIVE (NEGATIVE); KETONES,URINE NEGATIVE (NEGATIVE); NITRITE,URINE POSITIVE (NEGATIVE); PROTEIN,URINE DIPSTICK NEGATIVE (NEGATIVE); URINE UROBILINOGEN 0.2 mg/dL (0.2 - 1)
--- NOTE | 2019-09-11 16:13 | NUR ---
OPERATIVE NOTE ORTHOPEDICS . PREOPERATIVE DIAGNOSIS: LEFT Displaced extraarticular distal radius fracture POSTOPERATIVE DIAGNOSIS: LEFT Displaced extraarticular distal radius fracture OPERATIONS PERFORMED: Open reduction and internal fixation of LEFT distal radius SURGEON: Sherry Kowalski DO ANESTHESIA: General EBL: 5cc TOURNIQUET TIME: 72 Min COMPLICATIONS: None. COMPONENTS: Ferguson Left Distal Radius Variax 4 Hole Narrow Width Plate, 5 2.4 Locking Screws, 3 2.7 Cortical Screws, 1 2.7 Locking Screw CLINICAL SUMMARY: The patient is a 79-year-old right-hand dominant female who sustained a mechanical fall resulting in a fracture to the left distal radius and ulna OPERATION: The patient was brought to the operating table and placed in supine position and administered general anesthetic by the anesthesia. Preoperative antibiotics were provided. Once adequate anesthesia had been obtained, the LEFT upper extremity was prepped and draped in the usual sterile manner. The pat ient received preoperative antibiotics. Tourniquet was placed around the right upper extremity. The upper extremity was then elevated and exsanguinated using an Esmarch dressing. The tourniquet was elevated to 250 mmHg. The entire operation was performed with loop magnification. At this time an approximately 8 cm longitudinal incision was then made overlying the right flexor carpi radialis tendon from the flexion crease to the wrist proximally with a 45 degree radially directed incision distally. This was carried down to the flexor carpi radialis, which was then retracted ulnarly. The floor of the flexor carpi radialis sheath was then incised exposing the flexor pronator muscles. The flexor pollicis longus was retracted ulnarly and the remnants of the pronator quadratus was longitudinally incised 1 cm from its origin. It was then elevated off of the fracture site exposing the fracture site, which was dorsally displaced and shortened. This was an extraarticular fracture. Under image control K-wires were used to temporarily hold the reduction. The fracture ends were copiously irrigated with normal saline and curetted and then the fracture was reduced in the usual fashion by recreating the defect and distracting it. Further K-wires were then placed through the radial styloid into the proximal fragment. The above mentioned hardware was then fashioned over and placed over the distal radius and secured with 4 K-wires. Care was used to avoid intraarticular penetration while maintaining subchondral support which was verified via flouroscopy. Images were obtained and interpreted by me demonstrating adequate reduction of the fragments and the fracture with hardware in appropriate alignment. The incision was thoroughly irrigated and homeostasis was maintained with electrocautery. The volar carpal ligaments were repaired and the remnants of the pronator quadratus were repair. The subcutaneous tissue was closed with a 2-0 vicryl and the skin was closed with a 3-0 monocryl. The skin was cleaned and steristrips with xeroform were placed over the incision. Through the use of an angiocatch, 20 cc of local anesthetic was placed within the incision. 4x4, Cling were used and a short arm was placed over the arm. The patient was then placed in a sling. The tourniquet was let down at 204 minutes. The fingers were immediately pink. The patient was awakened and taken to the recovery room in good condition. There were no operative complications. The patient tolerated the procedure well. Post operatively, the patient was examined and found to be neurovascularly intact.
== END | disposition home or self-care (01) ==
LOC: OR 07:06
PROVIDERS: ATTEND Orthopaedic Surgery
DX: S52.552A Other extraarticular fracture of lower end of left radius, initial encounter for closed fracture (principal); E66.01 Morbid (severe) obesity due to excess calories; E78.5 Hyperlipidemia, unspecified; E11.22 Type 2 diabetes mellitus with diabetic chronic kidney disease; I12.9 Hypertensive chronic kidney disease with stage 1 through stage 4 chronic kidney disease, or unspecified chronic kidney disease; N18.3 Chronic kidney disease, stage 3 (moderate); F32.9 Major depressive disorder, single episode, unspecified; W19.XXXA Unspecified fall, initial encounter; Z79.4 Long term (current) use of insulin; Z79.84 Long term (current) use of oral hypoglycemic drugs; Z87.891 Personal history of nicotine dependence
CPT/HCPCS: 25607; 36415; 71046; 76000; 80048; 81003; 82948; 85025; 93005; C1713 ×10; J0690; J2001; J2405; J2704; J3010

== ENCOUNTER 2019-11-13 08:00 | Outpatient (RCR) | payer MEDICARE ==
[~2019-11-13 08:00] MED LIST changes: -BUPIVACAINE HCL 0.5% INJ 30 ML VIAL INJ ONE; -CEFAZOLIN SOD 1 GM/NS 50ML 100 ML IV ONE; -FENTANYL CITRATE/PF 100MCG/2 ML INJ ONE; -LIDOCAINE HCL 2% LOCAL INJ 5 ML SDV VIAL INJ ONE; -ONDANSETRON HCL INJ 2MG/ML 2ML 2 MG/ML VIAL ONE; -PROPOFOL IV EMULSION 10 MG/ML 20 ML VIAL ONE; -SEVOFLURANE INHAL SOLN 250 ML PEN BTL ONE
== END 2019-11-17 ==
LOC: OT 08:00
PROVIDERS: ATTEND Orthopaedic Surgery
DX: S52.532D Colles' fracture of left radius, subsequent encounter for closed fracture with routine healing (principal)

== ENCOUNTER → 2024-03-22 | Day surgery (SDC) | payer MEDICARE ==
[2024-03-18 12:08] LABS: BASOPHILS % 0.4 % (0.0-1.0); EOSINOPHILS # (AUTO) 0.1 (0.0-0.4); EOSINOPHILS % 1.8 % (0.0-6.0); HEMATOCRIT 40.9 % (34.2-44.1); HEMOGLOBIN 12.4 g/dL (12.0-16.0); LYMPHOCYTES # (AUTO) 1.6 (1.0-3.2); LYMPHOCYTES % 21.5 % (18.0-39.1); MEAN CORPUSCULAR HEMOGLOBIN 28.9 pg (28-32); MEAN CORPUSCULAR HGB CONC 30.3 g/dL (31-35); MEAN CORPUSCULAR VOLUME 95.3 fL (81-99); MONOCYTES # (AUTO) 0.5 (0.2-0.8); MONOCYTES % 6.9 % (4.4-11.3); NEUTROPHILS # (AUTO) 5.1 (2.1-6.9); PLATELET COUNT 206 x10e3/uL (140-360); RED BLOOD COUNT 4.29 x10e6/uL (3.6-5.1); RED CELL DISTRIBUTION WIDTH 13.9 % (11.7-14.4); WHITE BLOOD COUNT 7.38 x10e3/uL (4.8-10.8)
[2024-03-18 12:43] LABS: CALCIUM 9.4 mg/dL (8.4-10.2); CREATININE, SERUM 1.08 mg/dL (0.57-1.11)
[~2024-03-22] MED LIST changes: +ALENDRONATE SOD35 MG PO; +CEFTRIAXONE 1 GM VIAL ONE; +DEXAMETHASONE SOD PHOS INJ 4 MG/ML SDV ONE; +DONEPEZIL HCL5 MG PO; +ELIQUIS5 MG PO; +ESCITALOPRAM OX20 MG PO; +FENTANYL CITRATE/PF 100MCG/2 ML INJ ONE; +IOPAMIDOL 610MG/1ML 300 MG/ML VIAL IV ONE; +ISOSORBIDE MONO30 MG PO; +JARDIANCE25 MG PO; +KETOROLAC TROMETHAMINE 30 MG/ML VIAL ONE; +LACTATED RINGER'S 1,000 ML ONE; +LEVEMIR100 UNIT/1 SC; +LIDOCAINE HCL 2% LOCAL INJ 5 ML SDV VIAL INJ ONE; +MIDAZOLAM HCL 2 MG/2 ML VIAL ONE; +NOVOLOG100 UNIT/1 SC; +ONDANSETRON HCL INJ 2MG/ML 2ML 2 MG/ML VIAL ONE; +PROPOFOL IV EMULSION 10 MG/ML 20 ML VIAL ONE; +SEVOFLURANE INHAL SOLN 250 ML PEN BTL ONE
[2024-03-22 09:50] VITALS: BP 165/63; PULSE 87; RESP 17; O2SAT 96
== END | disposition home or self-care (01) ==
LOC: OR 06:52
PROVIDERS: ATTEND Urology
DX: N39.0 Urinary tract infection, site not specified (principal); N35.92 Unspecified urethral stricture, female; N81.3 Complete uterovaginal prolapse; N95.2 Postmenopausal atrophic vaginitis; E11.9 Type 2 diabetes mellitus without complications; I10 Essential (primary) hypertension; E78.5 Hyperlipidemia, unspecified; F41.9 Anxiety disorder, unspecified; F32.A Depression, unspecified; Z01.810 Encounter for preprocedural cardiovascular examination; Z01.812 Encounter for preprocedural laboratory examination; Z01.818 Encounter for other preprocedural examination; Z79.02 Long term (current) use of antithrombotics/antiplatelets; Z79.84 Long term (current) use of oral hypoglycemic drugs; Z79.4 Long term (current) use of insulin; Z79.899 Other long term (current) drug therapy
CPT/HCPCS: 36415; 52281; 71046; 74420; 80048; 85025; 93005; C1758; J0696; J1100; J1885; J2003; J2250; J2405; J2704; J3010; J7121; Q9967